=== PATIENT | male | born 1985 | race Caucasian/White ===

== ENCOUNTER 2016-11-08 05:10 | Emergency (ER) | payer SELFPAY ==
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
[2016-11-08] MEDS ORDERED: SODIUM CHLORIDE 1,000 ML IV STA (05:25)
[2016-11-08] MEDS ORDERED: TETANUS AND DIPHTHERIA TOXOID 0.5 ML DISP.SYRIN IM ONE (05:26)
[2016-11-08] MEDS ORDERED: AMPICILLIN NA/SULBACTAM NA 100 ML IVPB ONE (05:26)
[2016-11-08 05:29] VITALS: TEMP 97.6; BMI 26.4
[2016-11-08] MEDS ORDERED: AMPICILLIN SODIUM 1 GM VIAL ONE (05:32)
[2016-11-08 05:38] LABS: BASOPHIL 0.9 % (0-2.0); EOSINOPHIL 4.7 % (0-4.5); MCH 27.8 pg (25.7-33.7); MCHC 32.9 g/dl (32.0-35.9); MEAN CELL VOLUME 84.4 fl (80-96); MEAN PLT VOLUME 8.7 fl (7.5-11.1); NEUTROPHILS 47.8 % (42.8-82.8); PLATELET COUNT 247 K/MM3 (134-434); RDW 13.6 % (11.9-15.9)
[2016-11-08 05:50] LABS: INR 0.96 (0.82-1.09); PROTHROMBIN TIME (PATIENT) 10.5 SEC (9.98-11.88)
[2016-11-08 06:00] LABS: ANION GAP 10 (8-16); BILIRUBIN,TOTAL 0.2 mg/dL (0.2-1.0); CALCIUM 8.6 mg/dL (8.5-10.1); CO2 24 mmol/L (21-32); CREATININE 0.9 mg/dL (0.7-1.3); GLUCOSE,RANDOM 93 mg/dL (74-106); SGOT/AST 35 U/L (15-37); SGPT/ALT 38 U/L (12-78); TOT PROT 7.3 g/dl (6.4-8.2)
[2016-11-08 06:02] LABS: ALK PHOS 67 U/L (45-117); TROPONIN I < 0.02 ng/ml (0.00-0.05)
[2016-11-08 06:50] VITALS: BP 99/65; PULSE 69
[2016-11-08] MEDS ORDERED: BACITRACIN 15 GM TUBE TOPICAL OINTMENT ONE (06:58)
--- NOTE | 2016-11-08 12:46 | EKG ---
Test Reason : Blood Pressure : / mmHG Vent. Rate : 063 BPM Atrial Rate : 063 BPM P-R Int : 156 ms QRS Dur : 102 ms QT Int : 352 ms P-R-T Axes : 074 -16 055 degrees QTc Int : 360 ms NORMAL SINUS RHYTHM NORMAL ECG NO PREVIOUS ECGS AVAILABLE Confirmed by DOC IGLESIAS, JUAN ANTONIO ([id number]) on 11/08/2016 12:46:09 PM Referred By: Confirmed By:JUAN ANTONIO ROACH MD
== END 2016-11-08 07:08 | disposition home or self-care (01) ==
LOC: JER 05:10
PROC: 3E0234Z Introduction of Serum, Toxoid and Vaccine into Muscle, Percutaneous Approach (ICD-10-PCS; principal; 2016-11-08)
DX: S21.112A Laceration without foreign body of left front wall of thorax without penetration into thoracic cavity, initial encounter (principal); X58.XXXA Exposure to other specified factors, initial encounter; Y93.9 Activity, unspecified; Y92.9 Unspecified place or not applicable
CPT/HCPCS: 36415; 71010-TC; 71260-TC; 74177-TC; 80053; 82550; 82553; 84484; 85025; 85610; 86850; 86900; 86901; 93005; 93010; 99285-25

== ENCOUNTER 2017-04-16 01:51 | Emergency (ER) | payer SELFPAY ==
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
[2017-04-16] MEDS ORDERED: ONDANSETRON 4 MG/2 ML VIAL IVPUSH ONE (02:02)
[2017-04-16] MEDS ORDERED: FAMOTIDINE 20 MG/50 ML IVPB 20 MG/50 ML MG IVPB ONE (02:02)
[2017-04-16] MEDS ORDERED: PANTOPRAZOLE SODIUM 40 MG VIAL IVPB ONE (02:02)
[2017-04-16] MEDS ORDERED: SODIUM CHLORIDE 1,000 ML IV STA (02:02)
[2017-04-16] MEDS ORDERED: MAG HYDROX/AL HYDROX/SIMETH 30 ML UNIT-DOSE CUP PO ONE (02:03)
[2017-04-16] MEDS ORDERED: MAG HYDROX/AL HYDROX/SIMETH 30 ML UNIT-DOSE CUP ONE (02:15)
[2017-04-16] MEDS ORDERED: PANTOPRAZOLE SODIUM 40 MG/100 ML BAG IVPB ONE (02:15)
[2017-04-16] MEDS ORDERED: ONDANSETRON 4 MG/2 ML VIAL ONE (02:16)
[2017-04-16 02:17] VITALS: BP 105/61; PULSE 73; TEMP 98.3; BMI 26.4
--- NOTE | 2017-04-16 02:27 | PDOC ---
History of Present Illness - General Chief Complaint: Pain, Acute Stated Complaint: ABDOMINAL PAIN Time Seen by Provider: 04/16/17 01:54 History Source: Patient Exam Limitations: No Limitations - History of Present Illness Initial Comments: 04/16/17 02:20 Patient is a 32M with no significant medical history here today complaining of a burning epigastric abdominal pain for one hour that radiates to the chest. He states that the pain onset suddenly a few minutes after eating some spicy food. He reports drinking a few beers in celebration of the new years. Last bowel movement was about 36 hours ago. Denies pain with urination. Reports associated chills, shortness of breath, subjective fever and nausea. Denies vomiting. He states that he has a history of heartburn but doesn't take anything for it, believes this pain is a worse version of his prior heartburn. Endorses tobacco and occasional alcohol use. Past History - Past Medical History Allergies/Adverse Reactions: Allergies Allergy/AdvReac Type Severity Reaction Status Date / Time No Known Allergies Allergy Verified 04/16/17 02:05 Home Medications: Ambulatory Orders Omeprazole 0 mg PO DAILY 04/16/17 - Immunization History Td Vaccination: (unknown) Immunization Up to Date: Yes - Suicide/Smoking/Psychosocial Hx Smoking History: Current some day smoker Have you smoked in the past 12 months: No Number of Cigarettes Smoked Daily: 3 Information on smoking cessation initiated: No Hx Alcohol Use: No Drug/Substance Use Hx: No Review of Systems - Review of Systems Comments:: 04/16/17 02:27 GENERAL/CONSTITUTIONAL: Positive for fevers and chills. HEAD, EYES, EARS, NOSE AND THROAT: No change in vision. No sore throat. CARDIOVASCULAR: No chest pain. Positive for shortness of breath RESPIRATORY: No cough, wheezing, or hemoptysis. GASTROINTESTINAL: Positive for nausea. Negative for vomiting, diarrhea or constipation. GENITOURINARY: No dysuria, frequency, or change in urination. MUSCULOSKELETAL: No joint or muscle swelling or pain. No neck or back pain. SKIN: No rash NEUROLOGIC: No headache, vertigo, loss of consciousness, or change in strength/ sensation. ALLERGIC/IMMUNOLOGIC: No hives or skin allergy. *Physical Exam - Vital Signs Last Vital Signs Temp Pulse Resp BP Pulse Ox 98.3 F 73 20 105/61 99 04/16/17 02:05 04/16/17 02:05 04/16/17 02:05 04/16/17 02:05 04/16/17 02:05 - Physical Exam Comments: 04/16/17 02:29 GENERAL: Awake, alert, and fully oriented, in moderate distress HEAD: No signs of trauma, normocephalic, atraumatic EYES: PERRLA, EOMI, sclera anicteric, conjunctiva clear ENT: Auricles normal inspection, hearing grossly normal, nares patent, oropharynx clear without exudates. Moist mucosa LUNGS: No distress, speaks full sentences, clear to auscultation bilaterally HEART: Regular rate and rhythm, normal S1 and S2, no murmurs, rubs or gallops, peripheral pulses normal and equal bilaterally. ABDOMEN: Soft, tender in epigastric region, normoactive bowel sounds. No guarding, no rebound. No masses EXTREMITIES: Normal inspection, Normal range of motion, no edema. No clubbing or cyanosis. NEUROLOGICAL: Cranial nerves II through XII grossly intact. Normal speech, normal gait, no focal sensorimotor deficits SKIN: Warm, Dry, normal turgor, no rashes or lesions noted. ED Treatment Course - LABORATORY CBC & Chemistry Diagram: 04/16/17 02:26 04/16/17 02:16 Medical Decision Making - Medical Decision Making 04/16/17 02:29 Patient is a 32M here today with abdominal pain. Vital signs stable and normal. History and exam consistent with gastritis, but differential diagnosis also includes, but is not limited to: cholecystitis and pancreatitis. Will draw abdominal labs and treat with fluids, zofran, maalox, pepcid and protonix. Will re-evaluate after labs are resulted. 04/16/17 04:20 Laboratory Tests 04/16/17 04/16/17 02:16 02:26 WBC 6.5 Hgb 13.6 Hct 40.8 Plt Count 237 BUN 16 D Creatinine 1.0 CBC normal. CMP normal. Lipase negative. Feels better, is asking to go home. *DC/Admit/Observation/Transfer Diagnosis at time of Disposition: Abdominal pain - Discharge Dispostion Disposition: HOME Condition at time of disposition: Improved Admit: No - Referrals Referrals: Reyes Herrera MD [Staff Physician] - - Patient Instructions Printed Discharge Instructions: DI for Abdominal Pain-Adult Additional Instructions: Please return if you have any new, worsening or concerning symptoms. Please call to setup an appointment to see a primary care physician this week. Management of your condition as an outpatient can prevent further ED visits. - Post Discharge Activity
[2017-04-16 02:38] LABS: BASO % 0.3 % (0-2.0); EOS % 2.2 % (0-4.5); HEMATOCRIT 40.8 % (35.4-49); HEMOGLOBIN 13.6 GM/dL (11.7-16.9); LYMPH % 16.8 % (8-40); MCH 27.7 pg (25.7-33.7); MCHC 33.2 g/dl (32.0-35.9); MEAN CELL VOLUME 83.5 fl (80-96); MEAN PLT VOLUME 8.8 fl (7.5-11.1); MONO % 4.9 % (3.8-10.2); NEUT % 75.8 % (42.8-82.8); PLATELET COUNT 237 K/MM3 (134-434); RBC 4.89 M/mm3 (4.00-5.60); RDW 13.5 % (11.9-15.9); WHITE BLOOD COUNT 6.5 K/mm3 (4.0-10.0)
[2017-04-16] MEDS ORDERED: LIDOCAINE VISCOUS 2% ORAL/TOP 20 ML UNIT-DOSE CUP MM ONE (03:01)
[2017-04-16] MEDS ORDERED: MAG HYDROX/AL HYDROX/SIMETH 355 ML ORAL.SUSP PO ONE (03:01)
[2017-04-16] MEDS ORDERED: diphenhydrAMINE HCL 12.5 MG/5 ML UNIT-DOSE CUPS PO ONE (03:01)
[2017-04-16] MEDS ORDERED: LIDOCAINE VISCOUS 2% ORAL/TOP 20 ML UNIT-DOSE CUP ONE (03:13)
[2017-04-16] MEDS ORDERED: diphenhydrAMINE HCL 12.5 MG/5 ML BULK BOTTLE ONE (03:13)
[2017-04-16 03:14] LABS: ALBUMIN 4.2 g/dl (3.4-5.0); ALK PHOS 63 U/L (45-117); ANION GAP 13 (8-16); BILIRUBIN,TOTAL 0.5 mg/dL (0.2-1.0); BLOOD UREA NITROGEN 16 mg/dL (7-18); CALCIUM 8.7 mg/dL (8.5-10.1); CHLORIDE 103 mmol/L (98-107); CO2 25 mmol/L (21-32); GLUCOSE,RANDOM 72 mg/dL (74-106); LIPASE 146 U/L (73-393); POTASSIUM 3.6 mmol/L (3.5-5.1); SGOT/AST 25 U/L (15-37); SGPT/ALT 38 U/L (12-78); SODIUM 141 mmol/L (136-145); TOT PROT 7.5 g/dl (6.4-8.2)
== END 2017-04-16 04:30 | disposition home or self-care (01) ==
LOC: JER 01:51
PROC: 3E033GC Introduction of Other Therapeutic Substance into Peripheral Vein, Percutaneous Approach (ICD-10-PCS; principal; 2017-04-16)
PROC: 3E033GC Introduction of Other Therapeutic Substance into Peripheral Vein, Percutaneous Approach (ICD-10-PCS; 2017-04-16)
DX: K29.70 Gastritis, unspecified, without bleeding (principal)
CPT/HCPCS: 36415; 80053; 83690; 85025; 99283-25

== ENCOUNTER 2022-09-20 19:31 | Emergency (ER) | payer OTHER ==
[2022-09-20 19:52] VITALS: BP 120/68; PULSE 64; RESP 18; TEMP 98; BMI 21.6
== END 2022-09-21 00:10 | disposition home or self-care (01) ==
LOC: FER 19:31
DX: H57.12 Ocular pain, left eye (principal); R51.9 Headache, unspecified; S05.12XA Contusion of eyeball and orbital tissues, left eye, initial encounter; J32.2 Chronic ethmoidal sinusitis; W22.8XXA Striking against or struck by other objects, initial encounter
CPT/HCPCS: 70450-TC; 99284-25

== ENCOUNTER 2023-02-27 04:55 | Day surgery (SDC) | payer OTHER ==
[2023-02-20 16:30] VITALS: BMI 28.7
[2023-02-27 11:39] VITALS: RESP 18; TEMP 97
[2023-02-27 12:13] VITALS: BP 115/71; PULSE 52
== END 2023-02-27 12:00 | disposition home or self-care (01) ==
LOC: JASU-ENDO 04:55
PROVIDERS: ATTEND Internal Medicine Gastroenterology
PROC: 0DB78ZX Excision of Stomach, Pylorus, Via Natural or Artificial Opening Endoscopic, Diagnostic (ICD-10-PCS; 2023-02-27)
PROC: 0DB68ZX Excision of Stomach, Via Natural or Artificial Opening Endoscopic, Diagnostic (ICD-10-PCS; principal; 2023-02-27 11:30)
DX: K21.00 Gastro-esophageal reflux disease with esophagitis, without bleeding (principal); K44.9 Diaphragmatic hernia without obstruction or gangrene; K29.50 Unspecified chronic gastritis without bleeding; B96.81 Helicobacter pylori [H. pylori] as the cause of diseases classified elsewhere
CPT/HCPCS: 88305-TC; 88341-TC; 88342-TC

== ENCOUNTER 2023-05-21 03:54 | Day surgery (SDC) | payer OTHER ==
[2023-05-18 09:44] VITALS: BMI 30.7
[2023-05-21] MEDS ORDERED: ONDANSETRON 4 MG/2 ML VIAL ONE (08:48)
[2023-05-21] MEDS ORDERED: PROPOFOL 40 ML ONE (08:48)
[2023-05-21] MEDS ORDERED: LIDOCAINE HCL/PF 2% SDV 5ML VIAL ONE (08:48)
[2023-05-21] MEDS ORDERED: MIDAZOLAM HCL 2 MG/2 ML SINGLE DOSE VIAL ONE (08:49)
[2023-05-21] MEDS ORDERED: BUPIVACAINE HCL/PF 0.5% (5MG/ML) 10 ML VIAL ONE (09:26)
[2023-05-21] MEDS ORDERED: LIDOCAINE HCL 1%, 10 MG/ML (20ML VIAL) ONE (09:26)
[2023-05-21] MEDS: BUPIVACAINE HCL/PF 0.5% (5 MG/ML) 30 ML VIAL IJ ONE (10:21)
[2023-05-21] MEDS: LIDOCAINE HCL 1%, 10 MG/ML (20ML VIAL) INF ONE (10:21)
[2023-05-21] MEDS ORDERED: oxyCODONE HCL 5 MG TABLET PO PRN (10:26)
[2023-05-21] MEDS ORDERED: ONDANSETRON 4 MG/2 ML VIAL IVPUSH PRN (10:26)
[2023-05-21] MEDS: LACTATED RINGERS SOLUTION 1,000 ML IV SCH (10:49)
[2023-05-21 11:16] VITALS: BP 95/65; PULSE 50; RESP 17
[2023-05-21 11:18] VITALS: TEMP 97.7
== END 2023-05-21 12:15 | disposition home or self-care (01) ==
LOC: JASU-SURG 03:54
PROVIDERS: ATTEND Surgery
PROC: 0JBL0ZZ Excision of Right Upper Leg Subcutaneous Tissue and Fascia, Open Approach (ICD-10-PCS; principal; 2023-05-21 09:30)
DX: D17.23 Benign lipomatous neoplasm of skin and subcutaneous tissue of right leg (principal)
CPT/HCPCS: 88304-TC; 94760